=== PATIENT | female | born 2000 | race Caucasian/White ===

== ENCOUNTER → 2023-03-06 | Outpatient (CLI) | payer MEDICAID, OTHER ==
[2023-03-06] VITALS (25 sets, daily range): BP systolic 73–129; BP diastolic 51–88
[~2023-03-06] VITALS: Ht 177.8 cm; Wt 127.7 kg
[~2023-03-06] MED LIST: ATROPINE INJECTION 1 MG/10 ML SYR (ABBOTT) ONE; NS IV 1000 ML 1,000 ML IV SCH; NS IV 1000 ML 1,000 ML ONE
--- NOTE | 2023-03-06 15:19 | Cardiology Tilt Table Test ---
Cardiology-Tilt Table Test Tilt Table Test Date 03/06/23 Baseline Vitals Vital Signs Date Time Temp Pulse Resp B/P (MAP) Pulse Ox O2 Delivery O2 Flow Rate FiO2 03/06/23 14:36 36.4 68 18 129/73 (91) 100 Room Air Vital Signs VS - Last 72 Hours, by Label 03/06/23 03/06/23 03/06/23 03/06/23 14:36 14:39 14:40 14:42 Temp 36.4 Pulse 68 80 82 87 Resp 18 20 B/P (MAP) 129/73 (91) 118/88 (98) 118/76 (90) 118/77 (91) Pulse Ox 100 100 O2 Delivery Room Air 03/06/23 03/06/23 03/06/23 03/06/23 14:43 14:45 14:46 14:47 Pulse 88 89 93 89 B/P (MAP) 112/79 (90) 124/85 (98) 117/76 (90) 116/74 (88) Pulse Ox 100 100 03/06/23 03/06/23 03/06/23 03/06/23 14:48 14:49 14:50 14:51 Pulse 94 78 82 78 B/P (MAP) 113/77 (89) 121/69 (86) 124/68 (86) 122/72 (89) Pulse Ox 99 100 03/06/23 03/06/23 03/06/23 03/06/23 14:52 14:53 14:54 14:56 Pulse 86 86 89 103 Resp 16 17 B/P (MAP) 111/61 (78) 113/68 (83) 115/69 (84) 112/71 (85) Pulse Ox 98 99 98 03/06/23 03/06/23 03/06/23 03/06/23 14:57 14:58 15:00 15:01 Pulse 108 105 71 44 B/P (MAP) 108/69 (82) 97/58 (71) 78/51 (60) 73/62 (66) Pulse Ox 97 98 03/06/23 03/06/23 03/06/23 15:02 15:04 15:08 Pulse 58 60 70 B/P (MAP) 118/65 (82) 122/68 (86) 123/72 (89) Pulse Ox 98 96 Patient was tilted to 75 degrees for [10] minutes, then returned to supine position, given [2] sublingual nitroglycerin tablets, then tilted again to 75 degrees for [4] minutes. During test, patient was: had a syncopal event at minute (4, stage 2. Blood pressure fell to 73/62, followed by heart rate dropping to 44) In Conclusion;: Vasovagal Syncope with (Vasodepressor Syncope) Patient had syncopal event at minute 4 during stage 2, with Blood pressure dropping to 73/62, followed by heart rate dropping to 44, consistent with vasodepressive syncope. Instructed to increase salt and fluid intake, use compression stockings. If no improvement of symptoms, will consider use of Florinef. This is Jamaica Santiago PA-C, as a scribe for Dr. Garcia. JAMAICA SANCHES March 06, 2023 15:19
== END ==
LOC: CARD 13:30
PROVIDERS: ATTEND Internal Medicine Cardiovascular Disease
DX: R55 Syncope and collapse (principal); I10 Essential (primary) hypertension
CPT/HCPCS: 93306; 93660

== ENCOUNTER 2023-03-14 08:31 | Outpatient (CLI) | payer MEDICAID, OTHER ==
[~2023-03-14] VITALS: Ht 177.8 cm; Wt 127.6 kg
[2023-03-15] MEDS ORDERED: VILA10TA2 PO (11:03)
[2023-03-15] MEDS ORDERED: BUSP15TA60 PO (11:03)
[2023-03-15] MEDS ORDERED: CETI10TA17 PO (11:03)
[2023-03-15] MEDS ORDERED: TRZ50T PO (11:03)
[2023-03-15] MEDS ORDERED: MULT-593 PO (11:03)
[2023-03-15] MEDS ORDERED: NORG1TAB33 PO (11:03)
[2023-03-15] MEDS ORDERED: OMEP20TA56 PO (11:03)
[2023-03-15] MEDS ORDERED: [UNRECOGNIZED DRUG - CODE] IM (11:03)
[2023-03-15] MEDS ORDERED: FAMO20TA3 PO (11:03)
[2023-03-15] MEDS ORDERED: GABA100C PO (11:03)
[2023-03-15] MEDS ORDERED: ROPI0.5T4 PO (11:03)
== END 2023-03-15 11:11 ==
LOC: PREOP 08:31
PROVIDERS: ATTEND Surgery
DX: Z01.818 Encounter for other preprocedural examination (principal)

== ENCOUNTER 2023-03-25 09:03 | Day surgery (SDC) | payer MEDICAID ==
[~2023-03-25] VITALS: Ht 177.8 cm; Wt 127.6 kg
[~2023-03-25 09:03] MED LIST changes: -ATROPINE INJECTION 1 MG/10 ML SYR (ABBOTT) ONE; +BUSP15TA60 PO; +CETI10TA17 PO; +FAMO20TA3 PO; +GABA100C PO; +MULT-593 PO; +NORG1TAB33 PO; -NS IV 1000 ML 1,000 ML IV SCH; -NS IV 1000 ML 1,000 ML ONE; +OMEP20TA56 PO; +ROPI0.5T4 PO; +TRZ50T PO; +VILA10TA2 PO; +[UNRECOGNIZED DRUG - CODE] IM
[2023-03-25] MEDS ORDERED: LACTATED RINGERS 1,000 ML IV STA (09:40)
[2023-03-25] MEDS ORDERED: HURRICAINE EXT TUBE (BENZOCAINE) XX PRN (09:45)
[2023-03-25 09:57] VITALS: BP 141/89
[2023-03-25] MEDS ORDERED: PROPOFOL INJECTION 50 ML IV ONE ×2 (10:35→10:47)
[2023-03-25] MEDS ORDERED: MIDAZOLAM 2 MG/2 ML (VERSED) VIAL ONE (10:35)
--- NOTE | 2023-03-25 11:08 | Progress Note-Post Operative ---
Post-Operative Progess Note Surgeon (s)/Trap Operator (s) Surgeon ANAHI RAINEY DO Trap Operator: CHICA Herrera student Pre-Operative Diagnosis Chronic Reflux, Change in bowel habits Post-Operative Diagnosis Gastritis Hiatal hernia Int hemorrhoids Procedure & Operative Findings Date of Procedure 03/25/23 Procedure Performed/Findings EGD with biopsy Colonoscopy PROCEDURE NOTE: After informed consent was obtained, the patient was brought to the endoscopy suite, placed in bed in left lateral decubitus position. She was administered IV sedation by the TANK WORKER who then monitored vitals the entire time, heart rate, blood pressure and pulse ox and the scope was inserted down the mouth through the esophagus into the stomach. On the way down, noted some mild esophagitis, took a picture, pushed into the stomach, pushed past the antrum into the duodenum. Duodenum looked good. Pulled back and did a biopsy of antrum, then retroflexed the scope, saw a hiatal hernia, took a picture of this and then pulled the scope into the GE junction, took another picture of the hiatal hernia and then did a biopsy of the GE junction. Pushed the scope back into the stomach, suctioned all the air out of the stomach. At this point pulled the scope up the esophagus and out the mouth. Switched camera, switched gloves, went down below and started the colonoscopy. Pushed all the way to about 150 cm and pushed into the cecum, took a picture of appendiceal orifice and noted the ileocecal valve. Then slowly withdrew the scope insufflating to look circumferentially at the bloom starting in the cecum, up the ascending colon to the hepatic flexure, then down the transverse colon, splenic flexure, into the descending colon down in the sigmoid and then into the rectal vault and retroflexed the scope. Took a picture of the internal hemorrhoids. The patient tolerated the procedure and she recovered in the endoscopy suite. Recommended for repeat colonoscopy at 45 years old Anesthesia Type IV sedation by TANK WORKER Estimated Blood Loss Estimated blood loss (mL): scant Specimens/Packing Specimens Removed antral bx GE jxn bx ANAHI RAINEY DO Mar 25, 2023 11:08
--- NOTE | 2023-03-25 11:09 | Endoscopy Discharge Instruct ---
Endo Procedure/Findings Findings 1.: Gastritis 2.: Hiatal Hernia 3.: Internal Hemorrhoids Discharge Instructions - Activity: You might feel a little sleepy until tomorrow. This is due to the medicine you received to relax you. Until tomorrow, you should: NOT drive a car, operate machinery or power tools. NOT drink any alcoholic beverages. NOT make any important decisions or sign importortant papers. Do not return to work until tomorrow, unless otherwise instructed. Resume previous activities tomorrow. Diet: Start by taking liquids. If you tolerate liquids, advance to solid food. 1.: EGD in 3 years 2.: Other Recommendation (at 45 years old) Notify Physician - If you experience excessive bleeding, unusual abdominal pain, fever, or chest pain, contact your doctor immediately. Follow-Up: Other Follow up in my office in one week ANAHI RAINEY DO Mar 25, 2023 11:09
[2023-03-25 11:10] VITALS: BP 97/53
[2023-03-25 11:15] VITALS: BP 142/79
[2023-03-25 12:10] VITALS: BP 148/79
--- NOTE | 2023-03-25 13:08 | Anesthesia-General Post-Op ---
MAC Patient Condition Mental Status/LOC: Same as Preop Cardiovascular: Satisfactory Nausea/Vomiting: Absent Respiratory: Satisfactory Pain: Controlled Complications: Absent Post Op Complications Complications None Follow Up Care/Instructions Patient Instructions None needed. Anesthesiology Discharge Order Discharge Order Patient is doing well, no complaints, stable vital signs, no apparent adverse anesthesia problems. No complications reported per nursing. VANITA HEALY CRNA Mar 25, 2023 13:08
== END 2023-03-25 12:10 | disposition home or self-care (01) ==
LOC: ENDO 09:03 → EDSEX 09:03 → ENDO 12:10
PROVIDERS: ATTEND Surgery
DX: K29.70 Gastritis, unspecified, without bleeding (principal); K44.9 Diaphragmatic hernia without obstruction or gangrene; K64.8 Other hemorrhoids; K21.00 Gastro-esophageal reflux disease with esophagitis, without bleeding; R19.4 Change in bowel habit; E66.9 Obesity, unspecified; Z68.41 Body mass index [BMI] 40.0-44.9, adult
CPT/HCPCS: 84703

== ENCOUNTER → 2023-04-09 | Outpatient (CLI) | payer OTHER ==
--- NOTE | 2023-04-09 14:41 | Diagnostic Imaging Report ---
EXAMINATION: US Abdomen limited. TECHNIQUE: Multiple real-time grayscale images were obtained over the right upper quadrant in various projections. REASON FOR EXAM: Abdominal pain. COMPARISON: None. FINDINGS: The liver is prominent, measuring 18 cm. The liver echogenicity is increased. There are no focal lesions. No intrahepatic biliary dilatation is present. The common bile duct is not dilated and measures 4 mm. The main portal vein is hepatopedal. No ascites in the upper abdomen. There is no evidence of cholelithiasis, gallbladder wall thickening or pericholecystic fluid. Sonographic Myers's sign is negative. The pancreas is not well visualized due to overlying bowel gas. The visualized portions of the IVC and aorta appear normal. The right kidney measures approximately 10.9 cm in length and has a normal appearance. IMPRESSION: 1. Hepatosplenomegaly with hepatic steatosis. No focal hepatic lesions. No ascites. 2. No evidence of cholelithiasis or acute cholecystitis. Dictated by: Dictated on workstation # [id number]
== END ==
LOC: EDSEX → RAD 09:20
PROVIDERS: ATTEND Surgery
DX: K76.0 Fatty (change of) liver, not elsewhere classified (principal); R16.2 Hepatomegaly with splenomegaly, not elsewhere classified
CPT/HCPCS: 76705

== ENCOUNTER 2023-07-24 05:28 | Outpatient (CLI) | payer MEDICAID ==
[~2023-07-24] VITALS: Ht 177.8 cm; Wt 122.5 kg
[~2023-07-24 05:28] MED LIST changes: +FAMO-356 PO; -FAMO20TA3 PO; +ROPI0.5T37 PO; -ROPI0.5T4 PO
[2023-07-24] MEDS ORDERED: RT-ALBUINH INH (12:56)
[2023-07-24] MEDS ORDERED: LISD40CA3 PO (12:56)
[2023-07-24] MEDS ORDERED: ARIP10642 IM (12:56)
[2023-07-24] MEDS ORDERED: ONDA4TAB11 SL (12:56)
[2023-07-24] MEDS ORDERED: ALBU2.5V4 NEB (12:56)
[2023-07-24] MEDS ORDERED: MELO15TA39 PO (12:56)
[2023-07-24] MEDS ORDERED: PREG100C56 PO (12:56)
[2023-07-24] MEDS ORDERED: VILA40TA2 PO (12:56)
[2023-07-24] MEDS ORDERED: CETI10TA17 PO (12:56)
== END 2023-07-24 13:04 | disposition home or self-care (01) ==
LOC: PREOP 05:28
PROVIDERS: ATTEND Surgery
DX: Z01.818 Encounter for other preprocedural examination (principal)

== ENCOUNTER 2023-08-14 07:58 | Day surgery (SDC) | payer MEDICAID ==
[~2023-08-14] VITALS: Ht 177.8 cm; Wt 122.5 kg
[2023-08-14] VITALS (11 sets, daily range): BP systolic 113–128; BP diastolic 55–75
[~2023-08-14 07:58] MED LIST changes: +ALBU2.5V4 NEB; +ARIP10642 IM; +LISD40CA3 PO; +MELO15TA39 PO; +ONDA4TAB11 SL; +PREG100C56 PO; +PREG200C29 PO; +RT-ALBUINH INH; +VILA40TA2 PO
[2023-08-14] MEDS ORDERED: LIDOCAINE 2% w/EPI 1:100,000 20 ML VIAL ONE (08:24)
[2023-08-14] MEDS ORDERED: dexAMETHasone INJ 10 MG/ML 1 ML VIAL ONE (08:31)
[2023-08-14] MEDS ORDERED: NEOSTIGMINE 1 MG/1ML 10 ML VIAL ONE (08:31)
[2023-08-14] MEDS ORDERED: MIDAZOLAM INJ 2 MG/2 ML VIAL ONE (08:31)
[2023-08-14] MEDS ORDERED: ROCURONIUM 50 MG/5 ML VIAL IV ONE ×2 (08:31→10:39)
[2023-08-14] MEDS ORDERED: ONDANSETRON INJECTION 4 MG/2 ML (SDV) ONE ×2 (08:31→11:49)
[2023-08-14] MEDS ORDERED: proPOfol INJECTION 200 MG/20 ML VIAL IV ONE (08:31)
[2023-08-14] MEDS ORDERED: GLYCOPYRROLATE INJ 0.2 MG/ML 2 ML VIAL ONE (08:31)
[2023-08-14] MEDS ORDERED: fentaNYL INJECTION 100 MCG/2 ML VIAL ONE ×2 (08:31→11:27)
[2023-08-14] MEDS ORDERED: LIDOCAINE PF 2% 5 ML VIAL ONE (08:31)
[2023-08-14] MEDS: LACTATED RINGERS 1,000 ML 1,000 ML IV PRN ×2 (08:55→10:10)
[2023-08-14] MEDS ORDERED: ceFAZolin INJECTION 2,000 MG in NS (IVPB) 50 ML 50 ML IV ONE (09:00)
[2023-08-14] MEDS ORDERED: INDOCYANINE GREEN IV ONE (09:00)
[2023-08-14] MEDS ORDERED: PHENYLEPHRINE 100 MCG/ML 10 ML (ANESTHESIA) SYR ONE (09:30)
[2023-08-14] MEDS ORDERED: KETAMINE 50 MG/5 ML SYRINGE ONE (10:07)
--- NOTE | 2023-08-14 10:45 | Progress Note-Post Operative ---
Post-Operative Progess Note Surgeon (s)/Ship Boss (s) Surgeon ANAHI RAINEY DO Ship Boss: Tyrese Pre-Operative Diagnosis BILIARY DYSKINESIA Post-Operative Diagnosis Same with Adhesions Procedure & Operative Findings Date of Procedure 08/14/23 Procedure Performed/Findings PROCEDURE: Laparoscopic cholecystectomy with intraoperative cholangiogram using the Robot. COMPLICATIONS: None. PROCEDURE: The patient was taken to the operating suite and was prepped and draped in sterile fashion. A surgical pause was performed. Just superior to the umbilicus, a 12 mm incision was made. Dissection was taken down to the fascia, which was then scored and grasped with a Shasta and the abdomen was then entered. An 0 Vicryl suture was placed in a [id number] fashion and a Torres trocar was placed and secured. Pneumoperitoneum was achieved. We then placed two 8mm ports to the right of midline and one to the left. These were robotic ports, about 10cm in spacing between all ports and done with direct visualization. The gallbladder was then grasped and adhesions were taken down. The fundus was grasped and elevated in the superior direction. The cystic duct and cystic artery were then dissected out. I elected to use the bipolar cautery to ligate the cystic artery. A clip was placed on the distal portion of the cystic duct which was then partially transected. Dr. Xiong placed a 14 gauge angiocathe and then placed the Taut catheter into the abdomen and then inserted into the duct. The cholangiogram was then performed. No filling defects were seen, contrast went up into the common hepatic, down the common bile duct and contrast made its way into the duodenum. Catheter was removed and clips were placed on the proximal portion of the cystic duct. The duct was then transected and the cystic artery was also transected with scissors. Hook cautery was used to dissect the gallbladder from the gallbladder fossa achieving hemostasis. Dr. Xiong placed the gallbladder in an Endobag and removed through the 12 mm trocar site. The abdomen was then reinspected and there were no signs of active bleeding. Hemostasis had been achieved. The 12 mm fascial defect was then closed with 0 Vicryl suture that had been placed in a [id number] fashion. The abdomen was then desufflated, the trocars were removed. The abdomen was then washed and dried. The skin was then closed using 4-0 Monocryl in a subcuticular fashion. The abdomen was washed and dried and Skin Affix was place over incisions. Patient tolerated the procedure well without any complications and was taken to the recovery room in stable condition. Dr. Xiong also helped to make incisions, close incisions and helped position the C-Arm. Anesthesia Type GET Estimated Blood Loss Estimated blood loss (mL): scant Specimens/Packing Specimens Removed GB and contents ANAHI RAINEY DO Aug 14, 2023 10:45
[2023-08-14] MEDS ORDERED: IOHEXOL 300 MG/ML 30 ML (OMNIPAQUE 300) VIAL INJ ONE (10:46)
[2023-08-14] MEDS ORDERED: ACHYD1T PO (10:46)
--- NOTE | 2023-08-14 10:48 | Discharge Inst-Surgical ---
Discharge Inst-Surgical Depart Medication/Instructions New, Converted or Re-Newed RX: Transmitted to Pharmacy Patient Instructions Follow up Appt: Make appointment for 1 week. [phone] Instructions: No lifting greater than 20 pounds. No strenuous activity. May shower in 24 hours, no tub bath or soaking. Use incentive spirometer at home as directed. No Smoking Skin/Wound Care: May remove bandages in am. You need to leave the Dermabond on incision it will fall off on it's own. Symptoms to Report: Appetite Changes, Extremity Discoloration, Numbness/Tingling, Swelling Increased, Bleeding Excessive, Eyesight Changes, Pain Increased, Urine Color Change, Constipation(Persistent), Fever over 101 degree F, Pain/Pressure in chest, Urinating Difficulty, Cough Up/Vomit Blood, Heart Beat Irreg/Pounding, Pain/Pressure in jaw, Cramps in feet or legs, Lightheadedness, Pain/Pressure in shoulder, Diarrhea(Persistent), Memory Changes Suddenly, Questions/Concerns, Weight gain consecutive days, Dizziness/Fainting, Nausea/Vomiting, Shortness of Breath, Weight gain over 2 pounds If questions or concerns contact your physician Or seek help at emergency department. Activity Activity as Tolerated: Yes Activity Instructions: Avoid Stress to Incision Driving Instructions: No Driving/Refer to Diet Discharge Diet: Avoid Fatty Foods, Low Fat/Low Cholesterol Diet After 24 Hours: Clear Liquid if Nauseous If Any Problems/Questions/Issu: Contact Your Physician, Go to Emergency Room Skin/Wound Care Infection Signs and Symptoms: Increased Redness, Foul Odor of Wound, Increased Drainage, Skin Itchy or Has a Rash, Increased Swelling, Temperature Above 101 F Wound Care Comment: heating pad to shoulder or neck tonight for pain Bathing Instructions: Shower Stitches/[place]/Dermabond Dis: Dermabond Ice Pack: Ice On and Off Site ANAHI RAINEY DO Aug 14, 2023 10:48
--- NOTE | 2023-08-14 11:03 | Anesthesia-General Post-Op ---
General Patient Condition Mental Status/LOC: Same as Preop Cardiovascular: Satisfactory Nausea/Vomiting: Absent Respiratory: Satisfactory Pain: Controlled Complications: Absent Post Op Complications Complications None Follow Up Care/Instructions Patient Instructions None needed. Anesthesia/Patient Condition Patient Condition Patient is doing well, no complaints, stable vital signs, no apparent adverse anesthesia problems. No complications reported per nursing. ANDREW SETHI CRNA Aug 14, 2023 11:03
[2023-08-14] MEDS ORDERED: SEVOFLURANE (ULTANE) 15 ML INHAL SOLN ONE (11:07)
[2023-08-14] MEDS ORDERED: morphine INJ 10 MG/ML 1ML (SYR OR VIAL) ONE (11:08)
[2023-08-14] MEDS ORDERED: morphine INJ 10 MG/ML 1ML (SYR OR VIAL) IVP ONE (11:15)
[2023-08-14] MEDS ORDERED: ONDANSETRON INJECTION 4 MG/2 ML (SDV) IVP PRN (11:15)
[2023-08-14] MEDS ORDERED: fentaNYL INJECTION 100 MCG/2 ML VIAL IVP ONE (11:15)
[2023-08-14] MEDS ORDERED: MEPERIDINE INJ 50 MG/ML VIAL IVP ONE (11:15)
[2023-08-14] MEDS ORDERED: HYDROcodone/ACETAMINOPHEN 10/325 TABLET PO ONE ×2 (12:25→12:30)
--- NOTE | 2023-08-16 12:04 | Diagnostic Imaging Report ---
EXAMINATION: Operative cholangiogram. INDICATION: Abdominal pain. Fluoroscopic assistance was provided for Dr. Xiong and Dr. El during their laparoscopic cholecystectomy procedure. 29 spot films were obtained. 16 seconds of fluoroscopic time was also utilized. FINDINGS: There are laparoscopic devices in place. The common bile duct has been opacified via a cystic duct catheter. The common bile duct does not seem to be dilated, and there is no defect within the common bile duct, although a portion of the duct was obscured by one of the instruments. There is only minimal extension the contrast into the small bowel. There does appear to be some extravasation of the contrast in the gallbladder fossa. IMPRESSION: Fluoroscopic assistance was provided for Dr. El and Dr. Xiong. Dictated by: Dictated on workstation # [id number]
== END 2023-08-14 13:05 | disposition home or self-care (01) ==
LOC: SDC 07:58
PROVIDERS: ATTEND Surgery
DX: K82.8 Other specified diseases of gallbladder (principal); K81.1 Chronic cholecystitis
CPT/HCPCS: 76000; 84703; 87081